=== PATIENT | male | born 1995 | race Caucasian/White ===

== ENCOUNTER 2020-02-08 22:15 | Emergency (ER) | payer OTHER ==
[~2020-02-08] VITALS: Ht 185.4 cm; Wt 74.8 kg
[~2020-02-08 22:15] MED LIST: ACTICIN 5% CREA60 G1 TOP; AMOXICILLIN 50500 M1 PO; AMOXICILLIN 50500 MG PO; CEPHALEXIN 500500 M1 PO; DOXYCYCLINE 10100 MG PO; FLEXERIL PO; HYDROCODON-ACE1 EACH PO; HYDROCODONE-AP1 EAC6 PO; HYDROCODONE-APA1 TA1 PO; IBUPROFEN 800800 M1 PO; IBUPROFEN 800800 MG PO; LIDOCAINE VISC100 M1 MM; LIDOCAINE VISC100 M1 SWISH&SPIT; MEDROLDOSEPACK PO; NOHOMEMEDICATIONS; NORCO 5-325 TA1 EAC1 PO; NORCO 5-325 TA1 EACH PO; PENICILLIN V P500 MG PO; PENICILLIN VK250 MG PO; PENICILLIN VK500 MG PO; TESSALON200 MG PO; TRAMADOL 50 MG50 MG PO; ZPAK PO; ZYRTEC 10 MG TA10 M1 PO
[2020-02-08] MEDS ORDERED: SERTRALINE HCL100 MG PO (22:32)
[2020-02-09] MEDS ORDERED: BACTRIM DS TAB1 EACH PO (00:12)
[2020-02-09 00:16] VITALS: BP 129/62
== END 2020-02-09 00:17 | disposition home or self-care (01) ==
LOC: M.ERS 22:15
DX: L02.414 Cutaneous abscess of left upper limb (principal)